=== PATIENT | female | born 1995 | race African-American/Black ===

== ENCOUNTER 2017-11-28 09:42 | Emergency (ER) | payer SELFPAY ==
[~2017-11-28] VITALS: Ht 154.9 cm; Wt 51.3 kg
[2017-11-28 09:47] VITALS: BP 121/79
[2017-11-28] MEDS ORDERED: LIDOCAINE-MPF 1%, 5ML ONE (10:09)
[2017-11-28] MEDS ORDERED: LIDOCAINE-MPF 1%, 5ML INFIL ONE (10:30)
[2017-11-28] MEDS ORDERED: LIDOCAINE-MPF 1%, 2ML ONE (11:48)
[2017-11-28] MEDS ORDERED: BACITRACIN ZINC OINT 500U/GM, 0.9 GM ONE (12:03)
== END 2017-11-28 12:38 | disposition home or self-care (01) ==
LOC: ED 12:16
DX: S00.85XA Superficial foreign body of other part of head, initial encounter (principal); W19.XXXA Unspecified fall, initial encounter; Y93.89 Activity, other specified; Y92.89 Other specified places as the place of occurrence of the external cause; Y99.8 Other external cause status
CPT/HCPCS: 12051; 70150; 99284